=== PATIENT | male | born 1960 | race Caucasian/White ===

== ENCOUNTER 2018-04-05 15:57 | Observation (INO) ==
[2018-04-05] MEDS ORDERED: *HR* LORazepam 2 MG/ML VIAL IVP ONE (16:59)
[2018-04-05] MEDS ORDERED: 0.9 % Sodium Chloride 1,000 ML IVC ONE (17:01)
[2018-04-05 17:06] LABS: Basophils # 0.1 K/mcL (0.0-0.2); Basophils % 0.4 %; Eosinophils % 0.3 %; Hematocrit 44.5 % (37.5-50.1); Hemoglobin 15.7 g/dL (12.9-16.9); Immature Granulocytes % 0.8 % (0-4); Lymphocytes # 1.4 K/mcL (0.6-4.6); Lymphocytes % 10.8 %; Mean Corpuscular HGB Conc 35.3 g/dL (31.6-35.5); Mean Corpuscular Hemoglobin 31.5 pg (28.0-33.3); Mean Corpuscular Volume 89.4 fL (83.0-100.0); Mean Platelet Volume 10.7 fL (9.4-12.4); Monocytes % 7.6 %; Neutrophils # 10.4 K/mcL (1.6-8.9); Platelet Count 269 K/mcL (140-400); Red Blood Count 4.98 M/mcL (4.19-5.50); Red Cell Distribution Width 14.2 % (11.5-14.5); Segmented Neutrophils % 80.1 %
[2018-04-05 17:21] LABS: BUN/Creatinine Ratio 14 (6-26); Blood Urea Nitrogen 17 mg/dL (6-20); Carbon Dioxide 26 mEq/L (23-29); Chloride 101 mEq/L (98-107); Glucose 125 mg/dL (70-105); Osmolality,Calculated 285 (280-300); Potassium 3.6 mEq/L (3.5-5.1); Sodium 136 mEq/L (136-145); eGFR For Non-African Americans > 60 (> 60)
[2018-04-05 17:57] LABS: Troponin I < 0.03 ng/mL (< 0.04)
--- NOTE | 2018-04-05 18:02 | Emergency Department Note ---
Disposition Clinical Impression: Palpitations, Diaphoresis Disposition: Admitted As Inpatient Condition: Good General Adult HPI - General Chief complaint: ED Shortness of Breath/Dyspnea Stated complaint: Elevated HR , BP Time Seen by Provider: 04/05/18 16:33 Source: patient Limitations: no limitations Nursing Notes Reviewed: Yes Vital Signs Reviewed: Yes - History of Present Illness Pain Scale: 0 - Related Data Home Medications Medication Instructions Recorded Confirmed Aspirin Enteric Coated [Aspirin EC] 81 mg PO DAILY 04/05/18 04/05/18 Lisinopril-HCTZ 20-12.5 [Prinzide 1 tab PO DAILY 04/05/18 04/05/18 20-12.5] Lovastatin [Lovastatin] 40 mg PO HS 04/05/18 04/05/18 Allergies Allergy/AdvReac Type Severity Reaction Status Date / Time No Known Allergies Allergy Verified 04/05/18 18:08 Past Medical History - Past Medical History Medical history: Reports: hyperlipidemia, hypertension Psychiatric history: Reports: no psych history - Social History Smoking Status: Never smoker Alcohol use: Reports: heavy Drug use: Reports: none Physical Exam - General Limitations: no limitations General appearance: alert, in no apparent distress Course Vital Signs Temperature 99.2 F 04/05/18 16:11 Pulse Rate 106 04/05/18 16:11 Respiratory Rate 18 04/05/18 16:11 Blood Pressure 142/98 04/05/18 16:11 O2 Sat by Pulse Oximetry 95 04/05/18 16:11 Temperature 99.2 F 04/05/18 16:41 Pulse Rate 86 04/05/18 18:03 Respiratory Rate 16 04/05/18 18:03 Blood Pressure 152/99 04/05/18 18:03 O2 Sat by Pulse Oximetry 95 04/05/18 18:03 Oxygen Delivery Oxygen Delivery Room Air Medical Decision Making - Lab Data Result diagrams: 04/05/18 16:45 04/05/18 16:45 Lab Results 04/05/18 04/05/18 04/05/18 Range/Units 16:45 16:45 16:45 WBC 13.0 H (4.3-11.1) K/mcL RBC 4.98 (4.19-5.50) M/mcL Hgb 15.7 (12.9-16.9) g/dL Hct 44.5 (37.5-50.1) % MCV 89.4 (83.0-100.0) fL MCH 31.5 (28.0-33.3) pg MCHC 35.3 (31.6-35.5) g/dL RDW 14.2 (11.5-14.5) % Plt Count 269 (140-400) K/mcL MPV 10.7 (9.4-12.4) fL Immature Gran % 0.8 (0-4) % Seg Neutrophils % 80.1 % Lymphocytes % 10.8 % Monocytes % 7.6 % Eosinophils % 0.3 % Basophils % 0.4 % Neutrophils # 10.4 H (1.6-8.9) K/mcL Lymphocytes # 1.4 (0.6-4.6) K/mcL Monocytes # 1.0 (0.0-1.3) K/mcL Eosinophils # 0.0 (0.0-0.6) K/mcL Basophils # 0.1 (0.0-0.2) K/mcL Sodium 136 (136-145) mEq/L Potassium 3.6 (3.5-5.1) mEq/L Chloride 101 (98-107) mEq/L Carbon Dioxide 26 (23-29) mEq/L BUN 17 (6-20) mg/dL Creatinine 1.23 (0.70-1.30) mg/dL Est GFR ( Amer) > 60 (> 60) Est GFR (Non-Af Amer) > 60 (> 60) BUN/Creatinine Ratio 14 (6-26) Glucose 125 H (70-105) mg/dL Calculated Osmolality 285 (280-300) Lactic Acid 1.5 (0.5-2.2) mmol/L Calcium 10.0 (8.6-10.3) mg/dL Troponin I < 0.03 (< 0.04) ng/mL B-Natriuretic Peptide (Less than 100) pg/mL 04/05/18 Range/Units 16:45 WBC (4.3-11.1) K/mcL RBC (4.19-5.50) M/mcL Hgb (12.9-16.9) g/dL Hct (37.5-50.1) % MCV (83.0-100.0) fL MCH (28.0-33.3) pg MCHC (31.6-35.5) g/dL RDW (11.5-14.5) % Plt Count (140-400) K/mcL MPV (9.4-12.4) fL Immature Gran % (0-4) % Seg Neutrophils % % Lymphocytes % % Monocytes % % Eosinophils % % Basophils % % Neutrophils # (1.6-8.9) K/mcL Lymphocytes # (0.6-4.6) K/mcL Monocytes # (0.0-1.3) K/mcL Eosinophils # (0.0-0.6) K/mcL Basophils # (0.0-0.2) K/mcL Sodium (136-145) mEq/L Potassium (3.5-5.1) mEq/L Chloride (98-107) mEq/L Carbon Dioxide (23-29) mEq/L BUN (6-20) mg/dL Creatinine (0.70-1.30) mg/dL Est GFR ( Amer) (> 60) Est GFR (Non-Af Amer) (> 60) BUN/Creatinine Ratio (6-26) Glucose (70-105) mg/dL Calculated Osmolality (280-300) Lactic Acid (0.5-2.2) mmol/L Calcium (8.6-10.3) mg/dL Troponin I (< 0.04) ng/mL B-Natriuretic Peptide 103 H (Less than 100) pg/mL Attestation Statement - Attestation Attestation: This documentation is done with the assistance of Dragon dictation. Despite efforts made to ensure accuracy, there may be inaccuracies in client hr manager or spelling and typographical errors. I examined this patient and my medical decision-making was reviewed with the Resident Physician. I agree with the documented findings, disposition and treatment plan as described except to the extent set forth below. Patient was seen and evaluated on arrival with Dr. Moreno and myself, I agree with her evaluation management plan, supervise care the patient's stay. Patient will stay with the diaphoresis and feeling nervous. Patient had a heart rate initially in the 90s but felt like he was getting tachycardic. Denies area real chest pain but some pressure. Were going to cardiac and then reassess. Chest X-Ray 04/05/18 16:17 IMPRESSION: Findings suggest congestive heart failure D/ / Chriss Orantes MD / Chriss Orantes MD Interpreting Provider: Chriss Orantes MD Chest x-ray shows a congestive heart failure pattern BNP is just greater than 100. And bring him into the hospital and reassess. Impression is dyspnea with mild CHF. Rule out ACS.
[2018-04-05] MEDS ORDERED: Aspirin 81 MG TAB.CHEW PO ONE (18:51)
--- NOTE | 2018-04-05 18:51 | Emergency Department Note ---
Disposition Clinical Impression: Palpitations, Diaphoresis Disposition: Admitted As Inpatient Condition: Good Time of Disposition: 18:53 General Adult HPI - General Chief complaint: ED Shortness of Breath/Dyspnea Stated complaint: Elevated HR , BP Time Seen by Provider: 04/05/18 16:33 Source: patient Mode of arrival: ambulatory Limitations: no limitations Nursing Notes Reviewed: Yes Vital Signs Reviewed: Yes - History of Present Illness HPI Narrative: 57-year-old male with significant past medical history of hypertension and hyperlipidemia presenting to the emergency Department chief complaint of palpitations and diaphoresis. Patient states he was outside working when he fell very hot and started having palpitations. He went inside and started feeling like he was shaking. Patient did not take any medications at home. He came in for further evaluation. Patient denies any cardiac history. Denies any previous cardiac workup. Denies any recent fevers, nausea, vomiting or diarrhea. Denies any abdominal pain. Pain Scale: 0 - Related Data Home Medications Medication Instructions Recorded Confirmed Aspirin Enteric Coated [Aspirin EC] 81 mg PO DAILY 04/05/18 04/05/18 Lisinopril-HCTZ 20-12.5 [Prinzide 1 tab PO DAILY 04/05/18 04/05/18 20-12.5] Lovastatin [Lovastatin] 40 mg PO HS 04/05/18 04/05/18 Allergies Allergy/AdvReac Type Severity Reaction Status Date / Time No Known Allergies Allergy Verified 04/05/18 18:08 All systems ED: reviewed and negative except as stated. Constitutional: Denies: fever, chills Eyes: Reports: as per HPI ENT ED: Reports: as per HPI Cardiovascular: Reports: palpitations Respiratory: Denies: cough, dyspnea, wheezes Gastrointestinal: Denies: abdominal pain, nausea, vomiting Genitourinary: Reports: as per HPI Musculoskeletal: Reports: as per HPI Integumentary: Denies: rash, abrasion Neurological: Denies: weakness, numbness, paresthesias Psychiatric: Reports: as per HPI Endocrine: Reports: as per HPI Hematological/Lymphatic: Reports: as per HPI Allergic/Immunologic: Reports: as per HPI Past Medical History - Past Medical History Attestation: Yes The following information was validated with the patient. Medical history: Reports: hyperlipidemia, hypertension Psychiatric history: Reports: no psych history - Social History Smoking Status: Never smoker Alcohol use: Reports: heavy Drug use: Reports: none Physical Exam - General Limitations: no limitations General appearance: alert, in no apparent distress - Head Head exam: atraumatic, normocephalic, normal inspection - Eye Eye exam: Present: normal appearance. Absent: scleral icterus, conjunctival injection - ENT ENT exam: normal exam, mucous membranes moist - Neck Neck exam: Present: normal inspection, full ROM. Absent: tenderness, meningismus - Chest Chest inspection: Present: normal inspection, symmetric chest wall rise. Absent : tenderness, rash - Respiratory Respiratory exam: Present: normal lung sounds bilaterally. Absent: respiratory distress, wheezes - Cardiovascular Cardiovascular exam: Present: normal rhythm, tachycardia, normal heart sounds - Abdominal Exam Abdominal exam: Present: soft, Non-Tender. Absent: distention, guarding, rebound - Extremities Exam Extremities exam: Present: normal inspection, full ROM - Neurological Exam Neurological exam: Present: alert, oriented X3 - Psychiatric Psychiatric exam: Present: anxious - Skin Skin exam: Present: diaphoresis Course Course Narrative: 57-year-old male presenting for shaking and diaphoresis. Patient also discloses palpitations. Physical exam shows tachycardia and diaphoresis but otherwise benign. Patient does have significant cardiac risk factors. We will perform cardiac workup including EKG, troponin and chest x-ray. Disposition pending results. Patient is alert and oriented 3 and room with stable vital signs. Patient agrees with this plan. - Reevaluation(s) Reevaluation #1: Patient's laboratory analysis benign. Patient given a dose aspirin. Due to the patient heart score being greater than 3 we will plan to admit him for further chest pain evaluation. Patient agrees with this plan. Patient is alert and oriented 3 and room stable vital signs. I spoke with the hospitalist on-call Dr. Lopez who agrees to accept the patient at this time. Vital Signs Temperature 99.2 F 04/05/18 16:11 Pulse Rate 106 04/05/18 16:11 Respiratory Rate 18 04/05/18 16:11 Blood Pressure 142/98 04/05/18 16:11 O2 Sat by Pulse Oximetry 95 04/05/18 16:11 Temperature 99.2 F 04/05/18 16:41 Pulse Rate 86 04/05/18 18:03 Respiratory Rate 16 04/05/18 18:03 Blood Pressure 152/99 04/05/18 18:03 O2 Sat by Pulse Oximetry 95 04/05/18 18:03 Oxygen Delivery Oxygen Delivery Room Air Medical Decision Making - Lab Data Result diagrams: 04/05/18 16:45 04/05/18 16:45 Lab Results 04/05/18 04/05/18 04/05/18 Range/Units 16:45 16:45 16:45 WBC 13.0 H (4.3-11.1) K/mcL RBC 4.98 (4.19-5.50) M/mcL Hgb 15.7 (12.9-16.9) g/dL Hct 44.5 (37.5-50.1) % MCV 89.4 (83.0-100.0) fL MCH 31.5 (28.0-33.3) pg MCHC 35.3 (31.6-35.5) g/dL RDW 14.2 (11.5-14.5) % Plt Count 269 (140-400) K/mcL MPV 10.7 (9.4-12.4) fL Immature Gran % 0.8 (0-4) % Seg Neutrophils % 80.1 % Lymphocytes % 10.8 % Monocytes % 7.6 % Eosinophils % 0.3 % Basophils % 0.4 % Neutrophils # 10.4 H (1.6-8.9) K/mcL Lymphocytes # 1.4 (0.6-4.6) K/mcL Monocytes # 1.0 (0.0-1.3) K/mcL Eosinophils # 0.0 (0.0-0.6) K/mcL Basophils # 0.1 (0.0-0.2) K/mcL Sodium 136 (136-145) mEq/L Potassium 3.6 (3.5-5.1) mEq/L Chloride 101 (98-107) mEq/L Carbon Dioxide 26 (23-29) mEq/L BUN 17 (6-20) mg/dL Creatinine 1.23 (0.70-1.30) mg/dL Est GFR ( Amer) > 60 (> 60) Est GFR (Non-Af Amer) > 60 (> 60) BUN/Creatinine Ratio 14 (6-26) Glucose 125 H (70-105) mg/dL Calculated Osmolality 285 (280-300) Lactic Acid 1.5 (0.5-2.2) mmol/L Calcium 10.0 (8.6-10.3) mg/dL Troponin I < 0.03 (< 0.04) ng/mL B-Natriuretic Peptide (Less than 100) pg/mL 04/05/18 Range/Units 16:45 WBC (4.3-11.1) K/mcL RBC (4.19-5.50) M/mcL Hgb (12.9-16.9) g/dL Hct (37.5-50.1) % MCV (83.0-100.0) fL MCH (28.0-33.3) pg MCHC (31.6-35.5) g/dL RDW (11.5-14.5) % Plt Count (140-400) K/mcL MPV (9.4-12.4) fL Immature Gran % (0-4) % Seg Neutrophils % % Lymphocytes % % Monocytes % % Eosinophils % % Basophils % % Neutrophils # (1.6-8.9) K/mcL Lymphocytes # (0.6-4.6) K/mcL Monocytes # (0.0-1.3) K/mcL Eosinophils # (0.0-0.6) K/mcL Basophils # (0.0-0.2) K/mcL Sodium (136-145) mEq/L Potassium (3.5-5.1) mEq/L Chloride (98-107) mEq/L Carbon Dioxide (23-29) mEq/L BUN (6-20) mg/dL Creatinine (0.70-1.30) mg/dL Est GFR ( Amer) (> 60) Est GFR (Non-Af Amer) (> 60) BUN/Creatinine Ratio (6-26) Glucose (70-105) mg/dL Calculated Osmolality (280-300) Lactic Acid (0.5-2.2) mmol/L Calcium (8.6-10.3) mg/dL Troponin I (< 0.04) ng/mL B-Natriuretic Peptide 103 H (Less than 100) pg/mL - EKG Data EKG #1 EKG attestation: Yes I reviewed and interpreted this EKG. EKG results narrative: Sinus tachycardia. 107 bpm. MN interval 149, QRS 94, QTC 390. Poor R-wave progression. No signs of acute ST segment elevation or ischemia.
[2018-04-05] MEDS ORDERED: Naloxone 0.4 MG/ML INJ IVP PRN (20:17)
[2018-04-05] MEDS ORDERED: Furosemide 40 MG/4 ML VIAL IVP SCH (21:00)
[2018-04-05 21:18] LABS: Troponin I < 0.03 ng/mL (< 0.04)
--- NOTE | 2018-04-05 22:47 | Internal Med History&Physical ---
Date of Encounter: 04/06/18 Time of Encounter: 22:00 Internal Medicine - H&P: HPI Chief complaint: Diaphoresis, Palpitations last night and today History of present illness: Mr. Rogers is a 57 year old male with pmh of hypertension and dyslipidemia presenting with complaints of palpitations and diaphoresis last night and this am. Patient says he was at work las night and suddenly felt jittery with palpitations and took his blood pressure which he noted to be more elevated than usual at 156/113 after which he went home and was able to rest properly. When he woke up this am, he went outside to work on his truck for about an hour , and the same feeling returned with jitteriness, diaphoresis only the symptoms lasted longer this time for about 6 hours and that's why he came to the ER. he denies any nausea, vomiting, fevers or chills. In the ER, troponins and EKG were negative. He however had a mild leukocytosis of 13 Past Med Surg Social Fam HX - Past Medical History Medical history: hyperlipidemia, hypertension Psychiatric history: no psych history - Past Surgical History Additional surgical history: cyst removal - Social History Smoking Status: Never smoker Alcohol use: heavy Drug use: none - Family History Paternal Grandmother Hx Family Cardiac Disorders: Yes ([place]) Maternal Grandmother Hx Family Cardiac Disorders: Yes ([place]) Internal Medicine - H&P: Meds Aspirin Enteric Coated [Aspirin EC] 81 mg PO DAILY 04/05/18 [History] Lisinopril-HCTZ 20-12.5 [Prinzide 20-12.5] 1 tab PO DAILY 04/05/18 [History] Lovastatin [Lovastatin] 40 mg PO HS 04/05/18 [History] 3 Allergy/AdvReac Type Severity Reaction Status Date / Time No Known Allergies Allergy Verified 04/05/18 18:08 All Systems PM: A 10-system review of systems was performed and is negative for pertinent findings except as documented above in the HPI. - Constitutional Constitutional: excessive sweating, no chills, no fever(s), no night sweats Additional comments: diaphoresis, jitteriness - EENT Eyes: no change in vision, no discharge, no pain, no photophobia Ears: no ear discharge, no ear pain, no tinnitus Nose, mouth and throat: no dysphagia, no nasal discharge, no neck pain, no sore throat - Cardiovascular Cardiovascular ROS IM: no chest pain, no diaphoresis, no dyspnea, no lightheadedness, no palpitations, no syncope - Respiratory Respiratory: no cough, no dyspnea, no wheezing, no excessive phlegm production - Gastrointestinal Gastrointestinal: no abdominal pain, no diarrhea, no hematemesis, no hematochezia, no melena, no nausea, no vomiting - Musculoskeletal Musculoskeletal ROS IM: no numbness, no tingling - Integumentary Integumentary IM: no rash, no unusual bruising - Neurological Neurological ROS: no confusion, no convulsions, no focal weakness, no numbness, no tingling, no tremor(s) - Hematologic/Lymphatic Hematologic/Lymphatic: no easy bruising - Constitutional Vitals: Temp Pulse Resp BP Pulse Ox 99.2 F 71 18 127/81 94 04/05/18 16:41 04/05/18 20:27 04/05/18 20:27 04/05/18 20:27 04/05/18 20:27 - Head Head exam: Present: atraumatic, normocephalic - Eye Eye exam: Present: PERRL, conjuntiva pink, sclera anicteric Pupils: Present: PERRL - Neck Neck exam general surgery: Present: supple, trachea midline. Absent: lymphadenopathy - Respiratory Respiratory exam: Present: CTAB. Absent: accessory muscle use, rales, rhonchi, wheezes - Cardiovascular Cardiovascular exam: Present: RRR, +S1, +S2. Absent: diastolic murmur, gallop, rubs, systolic murmur Additional comments: coarse breath sounds - GI/Abdominal GI/Abdominal exam: Present: normal bowel sounds, soft, no peritoneal signs. Absent: distended, tenderness - Extremities Exam Extremities exam: Present: warm, radial pulses palpable and symmetrical. Absent : calf tenderness, cyanotic, pedal edema - Neurological Exam Neurological exam: Present: CN II-XII intact, oriented X3, no focal deficits. Absent: pronater drift, facial droop, speech deficit - Skin Skin exam: Present: dry, intact Internal Med - H&P Results - Labs CBC & Chem 7: 04/05/18 16:45 04/05/18 16:45 - Assessment and plan (1) Diaphoresis Current Visit: Yes Status: Acute Assessment and plan: Diaphoresis rule out ACS. Patient had diaphoresis and elevated BP. Denies chest pain. Has risk factors for CAD including , hypertension, dydlipidemia and obesity. Received aspirin in ER. Obtain 2 more sets of troponins. Will continue on aspirin, obtain 2D echo in am. Obtain Utox and CPK, obtain TSH (2) Congestive heart failure Current Visit: Yes Status: Acute Assessment and plan: R/O acute CHF. Patient noted to have vascular congestion on chest xray. Denies any previous history of CHF, denies orthopnea or PND. Will start on lasix daily. Monitor ins and outs. Follow up 2d echo Qualifiers: Heart failure type: other Qualified Code(s): I50.9 - Heart failure, unspecified (3) Leukocytosis Current Visit: Yes Status: Acute Assessment and plan: WBC is 13. Unclear etiology. Obtain blood cultures, CXR shows no opacities/ infltrates. F/U urinalysis. Will consider abx if wbc continues to trend up. Patient is afebrile Qualifiers: Qualified Code(s): D72.829 - Elevated white blood cell count, unspecified (4) Hypertension Current Visit: Yes Status: Acute Assessment and plan: Resume home meds Qualifiers: Qualified Code(s): I10 - Essential (primary) hypertension (5) Dyslipidemia Current Visit: Yes Status: Acute Assessment and plan: Continue atorvastatin (6) DVT prophylaxis Current Visit: Yes Status: Acute Assessment and plan: Heparin sc - Time Spent With Patient Total time spent is greater than 50% in coordination of care (as documented) at patient's floor/unit and/or counseling patient:
[2018-04-05 23:12] LABS: Creatine Kinase 229 Units/L (30-223)
[2018-04-05 23:23] LABS: Amphetamine Screen,Urine Negative ng/mL (Cutoff=1000); Barbiturate Screen,Urine Negative ng/mL (Cutoff=200); Benzodiazepines Screen,Urine Negative ng/mL (Cutoff=200); Cannabinoid Screen,Urine Negative ng/mL (Cutoff = 50); Cocaine Screen,Urine Negative ng/mL (Cutoff= 300); Opiate Screen,Urine Negative ng/mL (Cutoff=300); Phencyclidine Screen,Urine Negative ng/mL (Cutoff=25)
[2018-04-05 23:36] LABS: Thyroid Stimulating Hormone 4.159 mcIU/mL (0.340-5.600)
[2018-04-06 00:16] LABS: Bilirubin,Urine Negative (Negative); Blood,Urine Negative (Negative); Clarity,Urine Clear (Clear); Color,Urine Yellow (Yellow); Glucose,Urine (UA) Normal (Normal); Ketones,Urine Negative (Negative); Leukocyte Esterase,Urine Negative (Negative); Nitrite,Urine Negative (Negative); Protein,Urine Negative (Neg-Trace); Specific Gravity,Urine < 1.005 (1.010-1.025); Urobilinogen,Urine Normal (Normal)
[2018-04-06 04:57] LABS: Basophils % 0.5 %; Eosinophils # 0.1 K/mcL (0.0-0.6); Eosinophils % 1.7 %; Hematocrit 45.2 % (37.5-50.1); Hemoglobin 15.5 g/dL (12.9-16.9); Immature Granulocytes % 0.6 % (0-4); Lymphocytes # 1.9 K/mcL (0.6-4.6); Lymphocytes % 22.9 %; Mean Corpuscular HGB Conc 34.3 g/dL (31.6-35.5); Mean Corpuscular Volume 90.4 fL (83.0-100.0); Mean Platelet Volume 11.1 fL (9.4-12.4); Monocytes # 0.9 K/mcL (0.0-1.3); Monocytes % 10.3 %; Neutrophils # 5.4 K/mcL (1.6-8.9); Platelet Count 245 K/mcL (140-400); Red Cell Distribution Width 14.2 % (11.5-14.5)
[2018-04-06 05:12] LABS: BUN/Creatinine Ratio 15 (6-26); Blood Urea Nitrogen 15 mg/dL (6-20); Calcium 9.7 mg/dL (8.6-10.3); Carbon Dioxide 25 mEq/L (23-29); Chloride 101 mEq/L (98-107); Glucose 110 mg/dL (70-105); Magnesium 1.9 mg/dL (1.6-2.6); Osmolality,Calculated 285 (280-300); Phosphorous 4.9 mg/dL (2.7-4.5); Potassium 3.5 mEq/L (3.5-5.1); Sodium 137 mEq/L (136-145); eGFR For Non-African Americans > 60 (> 60)
[2018-04-06] MEDS: *HR* Heparin 5,000 UNIT/ML VIAL SQ SCH ×2 (06:05→18:31)
[2018-04-06] MEDS: Lisinopril-HCTZ 20-12.5mg TABLET PO SCH (08:56)
[2018-04-06] MEDS: Aspirin Enteric Coated 81 MG Tablet PO SCH (08:56)
[2018-04-06] MEDS: Furosemide 40 MG/4 ML VIAL IVP SCH (08:57)
[2018-04-06] MEDS ORDERED: Isovue-370 500 ML INFUS..BTL IV ONE (09:47)
--- NOTE | 2018-04-06 11:28 | Internal Med Progress Note ---
Hospitalist Progress Note - Encounter Date of Encounter: 04/06/18 Time of Encounter: 11:26 - Subjective Interval History: Patient resting in bed, he has no palpitation or diaphoresis. - Exam Vitals: Temp Pulse Resp BP Pulse Ox 97.5 F L 70 16 123/80 94 04/06/18 07:08 04/06/18 07:08 04/06/18 07:08 04/06/18 07:08 04/06/18 07:08 Exam: PHYSICAL EXAMINATION: GENERAL APPEARANCE: The patient is alert, oriented and in no acute distress. HEENT: Head is normocephalic. The sinuses are nontender. Pupils are equal and reactive. The nares are patent. Oropharynx clear without lesions. NECK: Supple without lymphadenopathy. HEART: Regular rate and rhythm. LUNGS: No crackles or wheezes are heard. ABDOMEN: Soft, nontender, nondistended with good bowel sounds heard. Inguinal area is normal. EXTREMITIES: Without cyanosis, clubbing or edema. NEUROLOGICAL: Gross nonfocal. SKIN: Warm and dry without any rash. - Assessment and Plan (1) Diaphoresis Current Visit: Yes Status: Acute Assessment and Plan: Diaphoresis rule out ACS. Patient had diaphoresis and elevated BP. Denies chest pain. Has risk factors for CAD including , hypertension, dydlipidemia and obesity. Received aspirin in ER. troponins negative, EKG revealed sinus tachycardia without acute ST-T change. TSH normal. Chest x-ray showed pulmonary edema. Echocardiogram results pending. We will continue aspirin, patient received 1 dose of IV Lasix at ED, we will will continue IV Lasix. (2) Congestive heart failure Current Visit: Yes Status: Acute Assessment and Plan: R/O acute CHF. Patient noted to have vascular congestion on chest xray. Denies any previous history of CHF, denies orthopnea or PND. Monitor ins and outs. Follow up 2d echo. Continue IV Lasix. (3) Hypertension Current Visit: Yes Status: Acute Assessment and Plan: Resume home meds (4) Dyslipidemia Current Visit: Yes Status: Acute Assessment and Plan: Continue atorvastatin (5) DVT prophylaxis Current Visit: Yes Status: Acute Assessment and Plan: Heparin sc (6) Leukocytosis Current Visit: Yes Status: Resolved - Time Spent with Patient Total time spent is greater than 50% in coordination of care (as documented) at patient's floor/unit and/or counseling patient: Greater than 35 minutes Plan of Care Discussed with: patient Internal Medicine: Result - Labs CBC & Chem 7: 04/06/18 04:20 04/06/18 04:20 Labs: Short CBC 04/06/18 Range/Units 04:20 WBC 8.5 (4.3-11.1) K/mcL Hgb 15.5 (12.9-16.9) g/dL Hct 45.2 (37.5-50.1) % Plt Count 245 (140-400) K/mcL Neutrophils # 5.4 (1.6-8.9) K/mcL BMP 04/06/18 04:20 Sodium 137 Potassium 3.5 Chloride 101 Carbon Dioxide 25 BUN 15 Creatinine 1.01 Glucose 110 H Calcium 9.7 Cardiac Enzymes 04/05/18 04/06/18 04/06/18 Range/Units 20:40 04:20 10:10 Troponin I < 0.03 < 0.03 < 0.03 (< 0.04) ng/mL Urine 04/05/18 Range/Units 22:40 Urine Color Yellow (Yellow) Urine Clarity Clear (Clear) Urine pH 7.0 (5.0-8.0) pH Units Ur Specific [place] < 1.005 L (1.010-1.025) Urine Protein Negative (Neg-Trace) mg/dL Urine Glucose (UA) Normal (Normal) mg/dL Consult Discharge Plan - Plan Referrals: Blaze Laguna DO [Primary Care Provider] - 04/20/18 11:00 am (2) Congestive heart failure Qualifiers: Heart failure type: other Qualified Code(s): I50.9 - Heart failure, unspecified (3) Hypertension Qualifiers: Qualified Code(s): I10 - Essential (primary) hypertension (6) Leukocytosis Qualifiers: Qualified Code(s): D72.829 - Elevated white blood cell count, unspecified
[2018-04-06] MEDS ORDERED: Perflutren Lipid Microsphere 1.3 ML in 0.9 % Sodium Chloride 8.7 ML IVP ONE (11:32)
[2018-04-07] MEDS ORDERED: Regadenoson 0.4 MG/5 ML SYRINGE IVP ONE (05:54)
[2018-04-07] MEDS: *HR* Heparin 5,000 UNIT/ML VIAL SQ SCH ×2 (06:06→17:20)
[2018-04-07] MEDS: Aspirin Enteric Coated 81 MG Tablet PO SCH (10:47)
[2018-04-07] MEDS: Furosemide 40 MG/4 ML VIAL IVP SCH (10:47)
[2018-04-07] MEDS: Lisinopril-HCTZ 20-12.5mg TABLET PO SCH (10:47)
--- NOTE | 2018-04-07 11:13 | Internal Med Progress Note ---
Hospitalist Progress Note - Encounter Date of Encounter: 04/07/18 Time of Encounter: 11:10 - Subjective Interval History: Patient resting in bed, he has no palpitation or diaphoresis. - Exam Vitals: Temp Pulse Resp BP Pulse Ox 98.2 F 72 18 106/73 94 04/07/18 10:46 04/07/18 10:46 04/07/18 10:46 04/07/18 10:46 04/07/18 10:46 Exam: PHYSICAL EXAMINATION: GENERAL APPEARANCE: The patient is alert, oriented and in no acute distress. HEENT: Head is normocephalic. The sinuses are nontender. Pupils are equal and reactive. The nares are patent. Oropharynx clear without lesions. NECK: Supple without lymphadenopathy. HEART: Regular rate and rhythm. LUNGS: No crackles or wheezes are heard. ABDOMEN: Soft, nontender, nondistended with good bowel sounds heard. Inguinal area is normal. EXTREMITIES: Without cyanosis, clubbing or edema. NEUROLOGICAL: Gross nonfocal. SKIN: Warm and dry without any rash. - Assessment and Plan (1) Diaphoresis Current Visit: Yes Status: Acute Assessment and Plan: Diaphoresis rule out ACS. Patient had diaphoresis and elevated BP. Denies chest pain. Has risk factors for CAD including , hypertension, dydlipidemia and obesity. Received aspirin in ER. troponins negative, EKG revealed sinus tachycardia without acute ST-T change. TSH normal. Chest x-ray showed pulmonary edema. Echocardiogram Normal EF, mild LV diastolic dysfunction. - Etiology unclear, CT chest no PE, troponin negative, No acute EKG changes. - Stress test ongoing. (2) Congestive heart failure Current Visit: Yes Status: Acute Assessment and Plan: No Hx of CHF, ECHO showed mild LVDD. Symptoms improved with IV lasix, change lasix to oral. Pending stress test. (3) Hypertension Current Visit: Yes Status: Acute Assessment and Plan: Resume home meds (4) Dyslipidemia Current Visit: Yes Status: Acute Assessment and Plan: Continue atorvastatin (5) DVT prophylaxis Current Visit: Yes Status: Acute Assessment and Plan: Heparin sc (6) Leukocytosis Current Visit: Yes Status: Resolved - Time Spent with Patient Total time spent is greater than 50% in coordination of care (as documented) at patient's floor/unit and/or counseling patient: Greater than 35 minutes Plan of Care Discussed with: patient Internal Medicine: Result - Labs CBC & Chem 7: 04/06/18 04:20 04/06/18 04:20 - Impressions Impressions Chest CTA 04/06/18 09:47 IMPRESSION: No pulmonary emboli are identified. Cardiomegaly, with patchy ground-glass change as well as minimal interlobular septal smooth thickening, changes of which may be related to mild cardiogenic pulmonary edema. No consolidation, spiculated lung mass, or mediastinal lymphadenopathy. D/ / Adrián An MD / Adrián An MD Interpreting Provider: Adrián An MD Echocardiogram 04/06/18 20:22 Impressions: LVEF 60%. Normal LV chamber size and function. Mild left ventricular diastolic dysfunction. Mild concentric left ventricular hypertrophy. Normal right ventricular structure and function. Unable to estimate RVSP due to lack of TR jet. No obvious significant valvular dysfunction. Left Ventricular Wall Motion: Rest Echo Findings All wall segments showed normal motion. Findings: Study Quality * Technically sub-optimal due to body habitus. ECG Findings * Normal sinus rhythm. Left Ventricle * LVEF 60%. * Normal LV chamber size and function. * Mild left ventricular diastolic dysfunction. * Mild concentric left ventricular hypertrophy. Right Ventricle * Normal right ventricular structure and function. Left Atrium * Mildly dilated left atrium. Right Atrium * Mildly dilated right atrium. Aortic Valve * Trileaflet aortic valve with normal function. * No aortic stenosis. * No aortic regurgitation. Mitral Valve * Normal mitral valve structure and function. * No mitral stenosis. * No mitral regurgitation. Tricuspid Valve * Normal tricuspid valve structure and function. * No tricuspid regurgitation. * Unable to estimate RVSP due to lack of TR jet. Pulmonic Valve * Normal pulmonic valve structure and function. * No pulmonic regurgitation. Aorta * Normally sized aortic root. Pericardium * The pericardium appears normal. IVC * Normal IVC dimensions and inspiratory collapse. Pulmonary Artery * Normal visualized portions of the main pulmonary artery. Consult Discharge Plan - Plan Referrals: Blaze Laguna DO [Primary Care Provider] - 04/20/18 11:00 am (2) Congestive heart failure Qualifiers: Heart failure type: diastolic Heart failure chronicity: acute Qualified Code (s): I50.31 - Acute diastolic (congestive) heart failure (3) Hypertension Qualifiers: Hypertension type: essential hypertension Qualified Code(s): I10 - Essential (primary) hypertension (6) Leukocytosis Qualifiers: Leukocytosis type: unspecified Qualified Code(s): D72.829 - Elevated white blood cell count, unspecified
[2018-04-07 12:09] LABS: BUN/Creatinine Ratio 16 (6-26); Blood Urea Nitrogen 21 mg/dL (6-20); Calcium 10.1 mg/dL (8.6-10.3); Carbon Dioxide 28 mEq/L (23-29); Chloride 98 mEq/L (98-107); Glucose 105 mg/dL (70-105); Osmolality,Calculated 283 (280-300); Sodium 135 mEq/L (136-145); eGFR For Non-African Americans 54 (> 60)
[2018-04-07 12:33] LABS: Potassium 4.1 mEq/L (3.5-5.1)
--- NOTE | 2018-04-07 14:59 | Electrocardiograph Report ---
[address] [address] Test Date: 2018-04-05 Pat Name: Guy Rogers Department: 104 Room: 3B Gender: M Matcher: MSC : 1960 Requested By: Blair Carrillo Order Number: [id number] Reading MD: Paul Kay Measurements Intervals [place] Rate: 107 P: 10 SD: 149 QRS: 78 QRSD: 94 T: 47 QT: 327 QTc: 390 Interpretive Statements SINUS TACHYCARDIA Poor R wave progression Electronically Signed On 04-07-2018 14:57:46 EDT by Paul Kay
[2018-04-07] MEDS: Furosemide 20 MG TABLET PO SCH (17:21)
[2018-04-08 05:44] LABS: BUN/Creatinine Ratio 17 (6-26); Blood Urea Nitrogen 23 mg/dL (6-20); Calcium 9.4 mg/dL (8.6-10.3); Carbon Dioxide 25 mEq/L (23-29); Chloride 98 mEq/L (98-107); Glucose 106 mg/dL (70-105); Osmolality,Calculated 282 (280-300); Potassium 3.3 mEq/L (3.5-5.1); Sodium 134 mEq/L (136-145); eGFR For Non-African Americans 54 (> 60)
[2018-04-08] MEDS: Furosemide 20 MG TABLET PO SCH (06:13)
[2018-04-08] MEDS: *HR* Heparin 5,000 UNIT/ML VIAL SQ SCH (06:14)
[2018-04-08 07:26] VITALS: BP 101/71
[2018-04-08] MEDS: Aspirin Enteric Coated 81 MG Tablet PO SCH (07:58)
[2018-04-08] MEDS: Lisinopril-HCTZ 20-12.5mg TABLET PO SCH (07:58)
[2018-04-08] MEDS ORDERED: Metoprolol XL (24 HR) Succ 25 MG TAB.ER.24H PO SCH (10:00)
--- NOTE | 2018-04-08 10:28 | Discharge Summary ---
- NOTES TO OUTPATIENT PROVIDER Notes to Outpatient Provider: f/u with PCP as scheduled. Orders not resulted at time of discharge: Pending orders 04/05/18 22:30 Culture,Blood [BC] Routine 04/06/18 18:25 NM pato perf SPECT multi [NM] Routine Date of Encounter: 04/08/18 Time of Encounter: 10:25 - Discharge Diagnosis (1) Diaphoresis Priority: Primary Status: Acute (2) Congestive heart failure Priority: Primary Status: Suspected Qualifiers: Heart failure type: diastolic Heart failure chronicity: acute Qualified Code(s): I50.31 - Acute diastolic (congestive) heart failure (3) Hypertension Priority: Secondary Status: Chronic Qualifiers: Hypertension type: essential hypertension Qualified Code(s): I10 - Essential (primary) hypertension (4) Dyslipidemia Priority: Secondary Status: Chronic (5) DVT prophylaxis Priority: Primary Status: Acute (6) Leukocytosis Priority: Primary Status: Resolved Qualifiers: Leukocytosis type: unspecified Qualified Code(s): D72.829 - Elevated white blood cell count, unspecified Hospital course: Mr. Rogers is a 57 year old male with pmh of hypertension and dyslipidemia presenting with complaints of palpitations and diaphoresis. Patient says he was at work and suddenly felt jittery with palpitations and took his blood pressure which he noted to be more elevated than usual at 156/113 after which he went home and was able to rest properly. When he woke up this am, he went outside to work on his truck for about an hour, and the same feeling returned with jitteriness, diaphoresis only the symptoms lasted longer this time for about 6 hours and that's why he came to the ER. he denies any nausea, vomiting, fevers or chills. In the ER, troponins and EKG were negative. He however had a mild leukocytosis of 13. Chest and CT with IV contrast showed cardiomegaly with mild interstitial edema. Patient was started on IV Lasix. Echocardiogram showed ejection fraction 60% with mild left ventricular diastolic dysfunction. He also underwent stress nuclear test which was negative for ischemia. He reported several episodic anxiety attack while in the hospital with palpitation and tachycardia. His symptoms likely was attributed to anxiety. She was started on metoprolol XL. He will be discharged home today with follow-up with PCP within 1-2 weeks. Discharge discussed with: patient Time spent discussing smoking cessation with patient: more than 10 minutes - Time Spent with Patient Total time spent providing and/or coordinating discharge services: Greater than 30 minutes - Discharge Medications Prescriptions: Metoprolol XL (24 HR) Succ [Toprol Xl] 25 mg PO DAILY #30 tab.er.24h Home Medications: Aspirin Enteric Coated [Aspirin EC] 81 mg PO DAILY 04/05/18 [History] Lisinopril-HCTZ 20-12.5 [Prinzide 20-12.5] 1 tab PO DAILY 04/05/18 [History] Lovastatin 40 mg PO HS 04/05/18 [History] Metoprolol XL (24 HR) Succ [Toprol Xl] 25 mg PO DAILY #30 tab.er.24h 04/08/18 [ Rx] Allergies/Adverse Reactions: 3 Allergy/AdvReac Type Severity Reaction Status Date / Time No Known Allergies Allergy Verified 04/05/18 18:08 Date of admission: 04/05/18 18:43 Primary care physician: Blaze Laguna DO Anticipated date of discharge: 04/08/18 - Constitutional Vitals: Temp Pulse Resp BP Pulse Ox 98.0 F 74 16 101/71 94 04/08/18 07:25 04/08/18 07:25 04/08/18 07:25 04/08/18 07:25 04/08/18 07:55 General appearance: Present: A&O X 3 Exam: PHYSICAL EXAMINATION: GENERAL APPEARANCE: The patient is alert, oriented and in no acute distress. HEENT: Head is normocephalic. The sinuses are nontender. Pupils are equal and reactive. The nares are patent. Oropharynx clear without lesions. NECK: Supple without lymphadenopathy. HEART: Regular rate and rhythm. LUNGS: No crackles or wheezes are heard. ABDOMEN: Soft, nontender, nondistended with good bowel sounds heard. Inguinal area is normal. EXTREMITIES: Without cyanosis, clubbing or edema. NEUROLOGICAL: Gross nonfocal. SKIN: Warm and dry without any rash. - Patient Status Disposition: Home, Self-Care Condition: Good Functional capacity at discharge: independent ambulation Overall status at discharge: patient is back to baseline - Discharge Instructions Follow Up With: Blaze Laguna DO [Primary Care Provider] - 08/21/18 11:00 am - Diet and Activity Activity: increase activity as tolerated Diet: low fat, low cholesterol, low salt diet
== END 2018-04-08 11:29 | disposition home or self-care (01) ==
LOC: 3BNU 15:57 → EMEROO 15:57 → 3BNU 19:57
PROVIDERS: ADMIT Internal Medicine; ATTEND Internal Medicine